=== PATIENT | female | born 1995 | race African-American/Black ===

== ENCOUNTER 2017-03-16 11:02 | Emergency (ER) | payer MEDICAID ==
[~2017-03-16] VITALS: Ht 167.6 cm; Wt 80.0 kg
[2017-03-16] MEDS ORDERED: KETOROLAC 60MG/2ML VIAL IM ONE (11:15)
[2017-03-16] MEDS ORDERED: ACETAMINOPHEN WITH CODEINE 300/30MG TABLET PO ONE (13:15)
[2017-03-16 13:37] VITALS: BP 130/69
== END 2017-03-16 14:41 | disposition home or self-care (01) ==
LOC: ER 11:41
DX: S09.90XA Unspecified injury of head, initial encounter (principal); R51 Headache; S02.82XA Fracture of other specified skull and facial bones, left side, initial encounter for closed fracture; M79.89 Other specified soft tissue disorders; M25.561 Pain in right knee; Y04.8XXA Assault by other bodily force, initial encounter; Y93.89 Activity, other specified; Y92.89 Other specified places as the place of occurrence of the external cause
CPT/HCPCS: 70450; 70486; 73560; 81025; 96372; 99284; J1885; L1830; Z7610

== ENCOUNTER 2018-09-21 20:25 | Emergency (ER) | payer MEDICAID ==
[~2018-09-21] VITALS: Ht 162.6 cm; Wt 59.0 kg
[2018-09-22 00:41] VITALS: BP 115/68
== END 2018-09-22 00:42 | disposition home or self-care (01) ==
LOC: ER 20:25
DX: F41.9 Anxiety disorder, unspecified (principal); F41.0 Panic disorder [episodic paroxysmal anxiety]; F17.210 Nicotine dependence, cigarettes, uncomplicated
CPT/HCPCS: 99284

== ENCOUNTER 2018-11-28 20:03 | Emergency (ER) | payer MEDICAID ==
[~2018-11-28] VITALS: Ht 162.6 cm; Wt 68.0 kg
[2018-11-29 00:07] LABS: CLARITY URINE CLOUDY (CLEAR); COLOR URINE YELLOW (YELLOW); KETONES URINE NEGATIVE (NEGATIVE); LEUKOCYTE ESTERASE URINE 2+ (NEGATIVE); NITRITE URINE NEGATIVE (NEGATIVE); OCCULT BLOOD URINE NEGATIVE (NEGATIVE); PH URINE 5.5 (4.5-8.0); PROTEIN URINE TRACE (NEGATIVE); UROBILINOGEN URINE 0.2 E.U./dL (0.2-1.0)
[2018-11-29 00:24] LABS: *AMPHETAMINES SCREEN URINE NEGATIVE (NEGATIVE)
[2018-11-29 00:25] LABS: *BARBITURATES SCREEN URINE NEGATIVE (NEGATIVE); *BENZODIAZEPINES SCREEN URINE NEGATIVE (NEGATIVE); *COCAINE SCREEN URINE NEGATIVE (NEGATIVE)
[2018-11-29 00:26] LABS: CANNABINOID URINE SCREEN PRESUMTIVE POSITIVE (NEGATIVE); METHADONE URINE SCREEN NEGATIVE (NEGATIVE); OPIATES URINE SCREEN NEGATIVE (NEGATIVE); PHENCYCLIDINE URINE SCREEN NEGATIVE (NEGATIVE)
[2018-11-29 01:00] VITALS: BP 120/96
== END 2018-11-29 01:03 | disposition home or self-care (01) ==
LOC: ER 20:03
DX: F41.9 Anxiety disorder, unspecified (principal); N39.0 Urinary tract infection, site not specified
CPT/HCPCS: 80305; 81003; 81025; 93005; 99284

== ENCOUNTER 2019-12-06 18:39 | Emergency (ER) | payer MEDICAID ==
[~2019-12-06] VITALS: Ht 162.6 cm; Wt 91.0 kg
[2019-12-06 18:40] VITALS: BP 157/73
[2019-12-06] MEDS ORDERED: HYDROCODONE/ACETAMINOPHEN 5/325MG TABLET PO STA (19:16)
== END 2019-12-06 19:39 | disposition left against medical advice (07) ==
LOC: ER 18:53
DX: R51.9 Headache, unspecified (principal); M54.2 Cervicalgia; M25.511 Pain in right shoulder; F41.9 Anxiety disorder, unspecified; V43.52XA Car driver injured in collision with other type car in traffic accident, initial encounter; Y93.89 Activity, other specified; Y92.410 Unspecified street and highway as the place of occurrence of the external cause
CPT/HCPCS: 99283

== ENCOUNTER 2020-08-18 03:56 | Emergency (ER) | payer MEDICAID ==
[~2020-08-18] VITALS: Ht 170.2 cm; Wt 80.0 kg
[2020-08-18] MEDS ORDERED: ACETAMINOPHEN 325MG TABLET PO STA (04:18)
[2020-08-18] MEDS ORDERED: IBUP-2028 MT (05:48)
[2020-08-18 07:27] VITALS: BP 114/63
== END 2020-08-18 08:26 | disposition home or self-care (01) ==
LOC: ER 04:04
DX: S09.8XXA Other specified injuries of head, initial encounter (principal); S43.491A Other sprain of right shoulder joint, initial encounter; V49.49XA Driver injured in collision with other motor vehicles in traffic accident, initial encounter; Y93.89 Activity, other specified; Y92.89 Other specified places as the place of occurrence of the external cause; Y99.8 Other external cause status; F10.129 Alcohol abuse with intoxication, unspecified; Y90.0 Blood alcohol level of less than 20 mg/100 ml; F41.9 Anxiety disorder, unspecified
CPT/HCPCS: 29105; 71045; 73030; 99284; A4565

== ENCOUNTER 2021-03-04 15:06 | Emergency (ER) | payer MEDICAID, OTHER ==
[~2021-03-04] VITALS: Ht 162.6 cm; Wt 64.0 kg
[~2021-03-04 15:06] MED LIST: IBUP-2028 MT
[2021-03-04 16:16] LABS: CHLORIDE 100 mEq/L (98-107)
[2021-03-04 16:24] LABS: BASOPHILS % 0.7 % (0.0-2.0); EOSINOPHILS % 1.4 % (0.0-5.0); HEMATOCRIT. 41.6 % (36.0-48.0); HEMOGLOBIN. 14.2 g/dL (12.0-16.0); LYMPHOCYTES % 21.6 % (20.0-50.0); MEAN CORPUSCULAR HEMOGLOBIN 35.6 pg (28.0-32.0); MEAN PLATELET VOLUME 8.1 fl (7.4-10.4); MONOCYTES % 9.7 % (2.0-8.0); NEUTROPHILS % 66.6 % (40.0-76.0); PLATELET 341 x1000/uL (130-400); RED CELL DISTRIBUTION WIDTH 12.6 % (11.6-14.6)
[2021-03-04 16:25] LABS: HCG SCREEN NEGATIVE
[2021-03-04] MEDS ORDERED: MORPHINE SULFATE 4 MG/ML CPJ (NOT FOR IM USE) IV STA (17:02)
[2021-03-04] MEDS ORDERED: ONDANSETRON HCL 4MG/2ML INJ IV STA (17:02)
[2021-03-04] MEDS ORDERED: SODIUM CHLORIDE 0.9% 1,000 ML IV ONE (17:15)
[2021-03-04 19:11] LABS: CLARITY URINE CLEAR (CLEAR); COLOR URINE ORANGE (YELLOW); KETONES URINE 3+ (NEGATIVE); LEUKOCYTE ESTERASE URINE 1+ (NEGATIVE); NITRITE URINE NEGATIVE (NEGATIVE); OCCULT BLOOD URINE NEGATIVE (NEGATIVE); PROTEIN URINE NEGATIVE (NEGATIVE); SPECIFIC GRAVITY URINE 1.025 (1.005-1.030)
[2021-03-04] MEDS ORDERED: CEFTRIAXONE 1 G PREMIX 50 ML IV ONE (20:15)
[2021-03-04 23:16] VITALS: BP 110/71
== END 2021-03-04 23:42 | disposition short-term general hospital (02) ==
LOC: ER 15:06
DX: K85.90 Acute pancreatitis without necrosis or infection, unspecified (principal); N39.0 Urinary tract infection, site not specified; Z20.822 Contact with and (suspected) exposure to COVID-19; Z98.890 Other specified postprocedural states
CPT/HCPCS: 36415; 71045; 74176; 76705; 80053; 81003; 83690; 84703; 85025; 87086; 87426; 93005; 96361; 96365; 96375; 99285; A4217; J0696; J2270; J2405; J7030; Z7610

== ENCOUNTER 2022-10-11 21:15 | Inpatient (IN) | payer MEDICAID, OTHER ==
[~2022-10-11] VITALS: Ht 162.6 cm; Wt 61.3 kg
[2022-10-11] MEDS ORDERED: IPRATROPIUM BROMIDE (0.02%) 0.5MG/2.5ML NEB HHN STA (21:39)
[2022-10-11] MEDS ORDERED: ALBUTEROL (0.083%) 2.5MG/3ML NEB HHN STA (21:39)
[2022-10-11 22:35] LABS: BASOPHILS % 0.7 % (0.0-2.0); DIFFERENTIAL COMMENT 0; EOSINOPHILS % 1.1 % (0.0-5.0); HEMATOCRIT. 37.7 % (36.0-48.0); HEMOGLOBIN. 12.4 g/dL (12.0-16.0); LYMPHOCYTES % 67.9 % (20.0-50.0); MEAN CORPUSCULAR HEMOGLOBIN 33.6 pg (28.0-32.0); MEAN CORPUSCULAR HGB CONC 32.8 g/dL (31.0-37.0); MEAN CORPUSCULAR VOLUME 102.3 fL (81.0-99.0); MEAN PLATELET VOLUME 6.7 fl (7.4-10.4); MONOCYTES % 6.4 % (2.0-8.0); NEUTROPHILS % 23.9 % (40.0-76.0); PLATELET 341 x1000/uL (130-400); RED BLOOD CELL COUNT 3.68 mill/uL (4.2-5.4); RED CELL DISTRIBUTION WIDTH 13.5 % (11.6-14.6)
[2022-10-11 22:41] LABS: HCG SCREEN NEGATIVE
[2022-10-11 22:42] LABS: CHLORIDE 108 mEq/L (98-107); INDEX HEMOLYSI 1 (1-3); INDEX ICTERIC 1 (1-4); INDEX LIPEMIC 1 (1-3); POTASSIUM 3.1 mEq/L (3.5-5.1); SODIUM 141 mEq/L (136-145)
[2022-10-11 22:45] LABS: INR 1.1; PARTIAL THROMBOPLASTIN TIME 27.4 sec (23.4-31.0); PROTHROMBIN TIME 11.3 sec (9.6-11.0)
[2022-10-11 22:47] LABS: ALBUMIN 3.6 g/dL (3.4-5.0); CALCIUM 8.3 mg/dL (8.5-10.1); CARBON DIOXIDE 26 mEq/L (21-32); GLUCOSE 92 mg/dL (70-105); UREA NITROGEN BLOOD 6 mg/dL (7-21)
[2022-10-11 22:56] LABS: ALANINE AMINOTRANSFERASE 47 IU/L (13-61); ASPARTATE AMINOTRANSFERASE 118 IU/L (15-37); BILIRUBIN TOTAL 0.4 mg/dL (0.1-1.0); CREATININE 0.7 mg/dL (0.6-1.3); ETHANOL BLOOD 298 mg/dL (-10); NT PRO B-TYPE NATRIURETIC PEP 29 pg/mL (5-125); PROTEIN TOTAL 7.5 g/dL (6.0-8.3); TROPONIN I HIGH SENSITIVITY 4 ng/L (<54)
[2022-10-11] MEDS ORDERED: PANTOPRAZOLE SODIUM 40 MG/VIAL IV NR (23:30)
[2022-10-11] MEDS ORDERED: POTASSIUM CHLORIDE 20MEQ/PACKET PO NR (23:30)
[2022-10-11] MEDS ORDERED: ONDANSETRON HCL 4MG/2ML INJ IV NR (23:30)
[2022-10-11] MEDS ORDERED: MAGNESIUM/ALUMINUM HYDROXIDE/SIMETHICONE 30ML UDC PO NR (23:30)
[2022-10-12 00:02] LABS: *BARBITURATES SCREEN URINE NEGATIVE (NEGATIVE); *BENZODIAZEPINES SCREEN URINE NEGATIVE (NEGATIVE); *COCAINE SCREEN URINE NEGATIVE (NEGATIVE); ECSTASY MDMA SCREEN URINE NEGATIVE (NEGATIVE); METHADONE URINE SCREEN NEGATIVE (NEGATIVE); OPIATES URINE SCREEN NEGATIVE (NEGATIVE)
[2022-10-12 00:05] LABS: *AMPHETAMINES SCREEN URINE PRESUMTIVE POSITIVE (NEGATIVE); CANNABINOID URINE SCREEN PRESUMTIVE POSITIVE (NEGATIVE); PHENCYCLIDINE URINE SCREEN PRESUMTIVE POSITIVE (NEGATIVE)
[2022-10-12] MEDS ORDERED: ONDA4TAB50 MT (00:32)
[2022-10-12] MEDS ORDERED: MAG355OR21 MT (00:32)
[2022-10-12 18:00] VITALS: BP 115/78; PULSE 69; RESP 18; TEMP 97.6; TEMP 97.9
[2022-10-12] MEDS ORDERED: ONDANSETRON HCL 4MG/2ML INJ IV PRN (20:30)
[2022-10-12] MEDS ORDERED: ACETAMINOPHEN 650MG/20.3ML UDC PO PRN (20:30)
[2022-10-12 21:08] LABS: HEPATITIS B SURFACE ANTIGEN NEGATIVE
[2022-10-12 21:25] LABS: BASOPHILS % 1.3 % (0.0-2.0); DIFFERENTIAL COMMENT 0; EOSINOPHILS % 1.4 % (0.0-5.0); HEMATOCRIT. 40.1 % (36.0-48.0); HEMOGLOBIN. 13.3 g/dL (12.0-16.0); LYMPHOCYTES % 40.4 % (20.0-50.0); MEAN CORPUSCULAR HEMOGLOBIN 33.7 pg (28.0-32.0); MEAN CORPUSCULAR HGB CONC 33.3 g/dL (31.0-37.0); MEAN CORPUSCULAR VOLUME 101.3 fL (81.0-99.0); MEAN PLATELET VOLUME 7.4 fl (7.4-10.4); MONOCYTES % 9.9 % (2.0-8.0); PLATELET 314 x1000/uL (130-400); RED BLOOD CELL COUNT 3.96 mill/uL (4.2-5.4); RED CELL DISTRIBUTION WIDTH 13.5 % (11.6-14.6); WHITE BLOOD COUNT 4.5 x1000/uL (4.5-11.0)
[2022-10-12 21:28] LABS: CHLORIDE 102 mEq/L (98-107); INDEX HEMOLYSI 3 (1-3); INDEX ICTERIC 1 (1-4); INDEX LIPEMIC 1 (1-3); POTASSIUM 3.8 mEq/L (3.5-5.1); SODIUM 136 mEq/L (136-145)
[2022-10-12 21:37] LABS: HEPATITIS C VIR.AB 0.12 INDEXVAL (0.00-0.80)
[2022-10-12 21:38] LABS: CALCIUM 9.1 mg/dL (8.5-10.1); CARBON DIOXIDE 26 mEq/L (21-32); CREATININE 0.6 mg/dL (0.6-1.3); GLUCOSE 66 mg/dL (70-105); UREA NITROGEN BLOOD 6 mg/dL (7-21)
[2022-10-12] MEDS ORDERED: POTASSIUM CHLORIDE 20MEQ TABLET SR PO NR (21:45)
[2022-10-13 04:00] VITALS: BP 153/72; PULSE 59; RESP 20; TEMP 99
[2022-10-13 08:00] VITALS: BP 108/70; PULSE 62; RESP 18; TEMP 98
[2022-10-13 12:00] VITALS: BP 118/82; PULSE 65; RESP 18; TEMP 97.7
[2022-10-13 16:02] VITALS: BP 108/77; PULSE 72; RESP 18; TEMP 97.6
[2022-10-13 16:04] VITALS: BP 108/77; PULSE 72; TEMP 97.6; O2SAT 100
== END 2022-10-13 17:10 | disposition home or self-care (01) | DRG 203 ==
LOC: ER 21:25 → 7WST 10-12 18:35
PROVIDERS: ADMIT Internal Medicine; ATTEND Internal Medicine
DX: R07.89 Other chest pain (principal); J96.01 Acute respiratory failure with hypoxia; F17.210 Nicotine dependence, cigarettes, uncomplicated; E87.6 Hypokalemia; F19.10 Other psychoactive substance abuse, uncomplicated; I73.9 Peripheral vascular disease, unspecified; F10.129 Alcohol abuse with intoxication, unspecified; Y90.6 Blood alcohol level of 120-199 mg/100 ml
CPT/HCPCS: 36415; 71045; 80048; 80053; 80305; 80320; 83880; 84484; 84703; 85025; 86803; 87340; 93005; 99285; C9113; J2405; G0480

== ENCOUNTER 2022-11-22 14:14 | Emergency (ER) | payer OTHER ==
[~2022-11-22] VITALS: Ht 172.7 cm; Wt 61.0 kg
[~2022-11-22 14:14] MED LIST changes: +MAG355OR21 MT; +ONDA4TAB50 MT
[2022-11-22 14:18] VITALS: O2SAT 97
[2022-11-22] MEDS ORDERED: SODIUM CHLORIDE 0.9% IV ONE (14:30)
[2022-11-22] MEDS ORDERED: NALOXONE HCL 1 MG/ML 2ML VIAL IV ONE (14:45)
[2022-11-22] MEDS ORDERED: ONDANSETRON HCL 4MG/2ML INJ IV ONE (14:45)
[2022-11-22 15:53] LABS: BASOPHILS % 0.5 % (0.0-2.0); DIFFERENTIAL COMMENT 0; EOSINOPHILS % 0.7 % (0.0-5.0); HEMATOCRIT. 40.2 % (36.0-48.0); HEMOGLOBIN. 13.4 g/dL (12.0-16.0); LYMPHOCYTES % 28.7 % (20.0-50.0); MEAN CORPUSCULAR HEMOGLOBIN 34.3 pg (28.0-32.0); MEAN CORPUSCULAR HGB CONC 33.3 g/dL (31.0-37.0); MEAN CORPUSCULAR VOLUME 103.1 fL (81.0-99.0); MEAN PLATELET VOLUME 6.8 fl (7.4-10.4); MONOCYTES % 6.6 % (2.0-8.0); NEUTROPHILS % 63.5 % (40.0-76.0); PLATELET 361 x1000/uL (130-400); RED CELL DISTRIBUTION WIDTH 13.9 % (11.6-14.6); WHITE BLOOD COUNT 9.6 x1000/uL (4.5-11.0)
[2022-11-22 16:10] LABS: CHLORIDE 107 mEq/L (98-107); INDEX HEMOLYSI 1 (1-3); INDEX ICTERIC 1 (1-4); INDEX LIPEMIC 1 (1-3); POTASSIUM 3.2 mEq/L (3.5-5.1); SODIUM 138 mEq/L (136-145)
[2022-11-22 16:14] LABS: ACETAMINOPHEN <2 ug/mL ug/mL (10-30); CALCIUM 8.2 mg/dL (8.5-10.1); CARBON DIOXIDE 27 mEq/L (21-32); CREATININE 0.8 mg/dL (0.6-1.3); ETHANOL BLOOD 237 mg/dL (<10); GLUCOSE 72 mg/dL (70-105); UREA NITROGEN BLOOD 9 mg/dL (7-21)
[2022-11-22 16:15] LABS: *BARBITURATES SCREEN URINE NEGATIVE (NEGATIVE); *BENZODIAZEPINES SCREEN URINE NEGATIVE (NEGATIVE); *COCAINE SCREEN URINE NEGATIVE (NEGATIVE); OPIATES URINE SCREEN NEGATIVE (NEGATIVE)
[2022-11-22 16:19] LABS: HCG SCREEN NEGATIVE
[2022-11-22 16:47] LABS: *AMPHETAMINES SCREEN URINE PRESUMTIVE POSITIVE (NEGATIVE); CANNABINOID URINE SCREEN PRESUMTIVE POSITIVE (NEGATIVE); ECSTASY MDMA SCREEN URINE CONF.TEST INDICATED (NEGATIVE); PHENCYCLIDINE URINE SCREEN PRESUMTIVE POSITIVE (NEGATIVE)
[2022-11-22 22:00] VITALS: BP 124/80; PULSE 87; RESP 18; TEMP 98.1
== END 2022-11-22 23:01 | disposition home or self-care (01) ==
LOC: ER 14:26
DX: F10.129 Alcohol abuse with intoxication, unspecified (principal); F19.10 Other psychoactive substance abuse, uncomplicated; Y90.7 Blood alcohol level of 200-239 mg/100 ml
CPT/HCPCS: 80305; 80048; 80307; 80329; 80320; 84703; 85025; 36415; 96361; 96374; 96375; 99285; J2310; J2405; J7030; Z7610 ×4; A4315; G0480

== ENCOUNTER 2023-07-05 15:57 | Emergency (ER) | payer OTHER ==
[~2023-07-05] VITALS: Ht 162.6 cm; Wt 59.0 kg
[2023-07-05 16:02] VITALS: BP 128/76; PULSE 70; RESP 16; TEMP 97.9; O2SAT 100
[2023-07-05 17:05] LABS: BASOPHILS % 0.7 % (0.0-2.0); DIFFERENTIAL COMMENT 0; EOSINOPHILS % 1.2 % (0.0-5.0); HEMOGLOBIN. 13.1 g/dL (12.0-16.0); LYMPHOCYTES % 47.1 % (20.0-50.0); MEAN CORPUSCULAR HGB CONC 33.6 g/dL (31.0-37.0); MEAN PLATELET VOLUME 7.2 fl (7.4-10.4); MONOCYTES % 8.7 % (2.0-8.0); NEUTROPHILS % 42.3 % (40.0-76.0); PLATELET 332 x1000/uL (130-400); RED BLOOD CELL COUNT 3.75 mill/uL (4.2-5.4); WHITE BLOOD COUNT 5.6 x1000/uL (4.5-11.0)
[2023-07-05 17:09] LABS: CHLORIDE 107 mEq/L (98-107); POTASSIUM 3.7 mEq/L (3.5-5.1); SODIUM 140 mEq/L (136-145)
[2023-07-05 17:11] LABS: CALCIUM 9.7 mg/dL (8.7-10.4); CARBON DIOXIDE 23 mEq/L (21-32)
[2023-07-05 17:15] LABS: CREATININE 0.8 mg/dL (0.6-1.0); HCG SCREEN NEGATIVE
[2023-07-05 17:16] LABS: D-DIMER 1.15 mg/L FEU (<0.50); GLUCOSE 60 mg/dL (70-105); INR 0.9; PROTHROMBIN TIME 10.4 sec (9.6-11.0); UREA NITROGEN BLOOD 8 mg/dL (9-23)
[2023-07-05 17:49] LABS: TROPONIN I HIGH SENSITIVITY < 4 ng/L (3.0-34)
[2023-07-05] MEDS ORDERED: NAP5EC MT (19:24)
== END 2023-07-05 21:24 | disposition home or self-care (01) ==
LOC: ER 15:57
DX: R07.89 Other chest pain (principal)
CPT/HCPCS: 36415; 80048; 84484; 84703; 85025; 85379; 93005; 99284

== ENCOUNTER 2023-10-22 21:59 | Emergency (ER) | payer OTHER ==
[~2023-10-22] VITALS: Ht 162.6 cm; Wt 68.0 kg
[~2023-10-22 21:59] MED LIST changes: +NAP5EC MT
[2023-10-22 22:05] VITALS: TEMP 98.1; O2SAT 99
[2023-10-22 23:36] LABS: HCG SCREEN NEGATIVE
[2023-10-23] MEDS: SODIUM CHLORIDE 0.9% 1,000 ML IV ONE (01:30)
[2023-10-23] MEDS: KETOROLAC 15MG/ML VIAL IV ONE (01:30)
[2023-10-23 01:48] VITALS: BP 140/91; PULSE 98; RESP 18; O2SAT 98
[2023-10-23 02:03] LABS: HEMATOCRIT. 41.2 % (36.0-48.0); HEMOGLOBIN. 13.4 g/dL (12.0-16.0); MEAN CORPUSCULAR HEMOGLOBIN 33.8 pg (28.0-32.0); MEAN CORPUSCULAR HGB CONC 32.6 g/dL (31.0-37.0); MEAN CORPUSCULAR VOLUME 103.5 fL (81.0-99.0); MEAN PLATELET VOLUME 6.4 fl (7.4-10.4); PLATELET 362 x1000/uL (130-400); RED BLOOD CELL COUNT 3.98 mill/uL (4.2-5.4); RED CELL DISTRIBUTION WIDTH 13.4 % (11.6-14.6); WHITE BLOOD COUNT 5.9 x1000/uL (4.5-11.0)
[2023-10-23 02:07] LABS: CARBON DIOXIDE 24 mEq/L (21-32); CHLORIDE 107 mEq/L (98-107); SODIUM 140 mEq/L (136-145)
[2023-10-23 02:08] LABS: CALCIUM 9.2 mg/dL (8.7-10.4)
[2023-10-23 02:13] LABS: ETHANOL BLOOD 292 mg/dL (<10); GLUCOSE 71 mg/dL (70-105)
[2023-10-23 02:14] LABS: ALANINE AMINOTRANSFERASE 41 IU/L (10-49); ASPARTATE AMINOTRANSFERASE 88 IU/L (<34)
[2023-10-23 02:15] LABS: ALBUMIN 4.5 g/dL (3.2-4.8); BILIRUBIN TOTAL 0.2 mg/dL (0.1-1.0); PROTEIN TOTAL 7.6 g/dL (6.0-8.3)
[2023-10-23 02:20] LABS: DIFFERENTIAL COMMENT 1
[2023-10-23 03:30] LABS: BILIRUBIN DIRECT < 0.1 mg/dL (<=3.0); CREATININE 0.5 mg/dL (0.6-1.0); TROPONIN I HIGH SENSITIVITY < 4 ng/L (3.0-34); UREA NITROGEN BLOOD < 5 mg/dL (9-23)
[2023-10-23] MEDS: KETOROLAC 15MG/ML VIAL IV NR (03:45)
[2023-10-23] MEDS ORDERED: MAG355OR21 MT (03:46)
[2023-10-23 04:02] LABS: PLATELET ESTIMATE NORMAL
== END 2023-10-23 03:44 | disposition home or self-care (01) ==
LOC: ER 21:59
DX: F10.129 Alcohol abuse with intoxication, unspecified (principal); K29.20 Alcoholic gastritis without bleeding; F41.9 Anxiety disorder, unspecified; I49.9 Cardiac arrhythmia, unspecified; Z98.890 Other specified postprocedural states; Y90.8 Blood alcohol level of 240 mg/100 ml or more
CPT/HCPCS: 80076; 80048; 80320; 84703; 83690; 85025; 84484; 71045; 93005; 96360; 99285; 36415; J1885; J7030; G0480